=== PATIENT | male | born 1965 | race Caucasian/White ===

== ENCOUNTER 2018-03-05 22:26 | Emergency (ER) | payer MEDICAID ==
[~2018-03-05] VITALS: Ht 175.3 cm; Wt 83.9 kg
[2018-03-05 22:38] VITALS: BP_SYST 116
[2018-03-05 23:28] VITALS: BP_SYST 121
== END 2018-03-05 23:25 | disposition home or self-care (01) ==
LOC: SED 22:26
DX: L03.116 Cellulitis of left lower limb (principal); L03.115 Cellulitis of right lower limb; B86 Scabies; R60.0 Localized edema; F17.210 Nicotine dependence, cigarettes, uncomplicated
CPT/HCPCS: 99283

== ENCOUNTER 2018-10-09 17:40 | Emergency (ER) | payer SELFPAY ==
[~2018-10-09] VITALS: Ht 172.7 cm; Wt 74.8 kg
[2018-10-09 18:17] VITALS: BP_SYST 143
--- NOTE | 2018-10-09 20:44 | NUR ---
2043 - Patient to ER bed h1 for evaluation. Side rails up. Report given to ASHLEY Morgan.
--- NOTE | 2018-10-09 21:09 | NUR ---
Pt [id number] presents to ED c/o 05/24 pain to L knee and "all of L side of body" r/t slip and fall yesterday. Pt states he was in line at [facility] when he trip on a cleaning cloth and fell on L side. No deformites noted to site. No other injuries/complaints per pt/noted. Will continue to monitor.
--- NOTE | 2018-10-09 21:40 | NUR ---
ER Dr. Hawk at bedside examining patient.
[2018-10-09] MEDS ORDERED: KETOROLAC TROMETHAMINE 30 MG VIAL IM ONE (21:45)
--- NOTE | 2018-10-09 22:00 | NUR ---
Medication administered. Pt tolerated well. No adverse reactions noted.
[2018-10-09 22:30] VITALS: BP_SYST 139
--- NOTE | 2018-10-09 22:30 | NUR ---
Patient given written and verbal discharge instructions and verbalizes understanding. ER MD Hawk discussed with patient the results and treatment provided. Patient in stable condition. ID arm band removed. Rx of [place], Ibuprofen given. Patient educated on pain management and to follow up with PMD. Pain Scale 0. Opportunity for questions provided and answered. Medication side effect fact sheet provided.
== END 2018-10-09 22:30 | disposition home or self-care (01) ==
LOC: SED 17:40
DX: S83.92XA Sprain of unspecified site of left knee, initial encounter (principal); S33.5XXA Sprain of ligaments of lumbar spine, initial encounter; R03.0 Elevated blood-pressure reading, without diagnosis of hypertension; Z86.19 Personal history of other infectious and parasitic diseases; W01.0XXA Fall on same level from slipping, tripping and stumbling without subsequent striking against object, initial encounter; Y93.89 Activity, other specified; Y92.89 Other specified places as the place of occurrence of the external cause; Y99.8 Other external cause status
CPT/HCPCS: 29505; 73564; 96372; 99283; J1885

== ENCOUNTER 2023-09-26 00:11 | Emergency (ER) | payer OTHER ==
[~2023-09-26] VITALS: Ht 170.2 cm; Wt 63.5 kg
[2023-09-26 00:15] VITALS: BP_SYST 116; PULSE 85; RESP 17; TEMP 97.6; O2SAT 100
[2023-09-26] MEDS: NACL 0.9% 1,000 ML IV ONE (01:14)
[2023-09-26 03:04] VITALS: BP_SYST 111; PULSE 73; RESP 22; TEMP 98.7; O2SAT 100
== END 2023-09-26 02:43 | disposition left against medical advice (07) ==
LOC: SED 00:11
DX: K22.9 Disease of esophagus, unspecified (principal); R07.9 Chest pain, unspecified; R13.10 Dysphagia, unspecified; Z79.899 Other long term (current) drug therapy
CPT/HCPCS: 99284; 71250; 76376; Q9967